=== PATIENT | male | born 2000 | race Caucasian/White ===

== ENCOUNTER 2020-01-11 13:02 | Emergency (ER) | payer OTHER, SELFPAY ==
[~2020-01-11] VITALS: Ht 188 cm; Wt 66.1 kg
[2020-01-11 13:47] LABS: BASO % 0.6 % (0.0-1.0); EOS # 0.1 10^3/uL (0.0-0.5); EOS % 2.1 % (0.0-3.0); HEMOGLOBIN 14.9 g/dl (13.5-17.5); LYMPH # 1.7 10^3/uL (1.5-5.0); LYMPH % 25.6 % (24.0-44.0); MEAN CORPUSCULAR HEMOGLOBIN 29.3 pg (27.0-33.0); MEAN CORPUSCULAR HGB CONC 32.4 g/dl (32.0-36.5); MEAN CORPUSCULAR VOLUME 90.6 fl (80.0-96.0); MONO # 0.6 10^3/uL (0.0-0.8); MONO % 9.4 % (0.0-5.0); NEUTROPHILS # 4.2 10^3/uL (1.5-8.5); PLATELET COUNT, AUTOMATED 185 10^3/uL (150-450); RED BLOOD COUNT 5.08 10^6/uL (4.30-6.10); WHITE BLOOD COUNT 6.8 10^3/uL (4.0-10.0)
[2020-01-11 14:36] VITALS: BP 109/55
--- NOTE | 2020-01-11 14:42 | REP ---
INDICATION: tender lump upper arm and axilla. COMPARISON: None. TECHNIQUE: Soft tissue ultrasound with color Doppler FINDINGS: In the right upper arm distally at the site of the palpable finding there is a hypoechoic zone measuring 1.4 x 0.8 x 1.3 cm. Centrally there is zone of color flow within and more in the periphery. Lesion is predominantly hypoechoic. There are a few internal echoes within this lesion. The right axilla palpable finding represents 2 separate lesions. These also have a hypoechoic areas with a peripheral hyperechoic rim and also some color flow into the center of the lesion and the margin of the lesions. One of these does not have an echogenic hilum and measures 1.9 x 1.7 x 1.4. The other does have an echogenic hilum with vessels in it and measuring 2.4 x 1.6 x 1.6 cm. No other findings in these areas. IMPRESSION: 1. Two complex nodules in the right axilla, the larger a clearly a reactive node with the echogenic hilum and blood flow into it and with a hypoechoic periphery. The other does not have the echogenic hilum but does show blood flow in a small central portion as well as at its periphery. I suspect reactive nodes for both of these. Phlegmonous changes may be present. I cannot define abscess in the axilla at this time. 2. Distal forearm lesion may be phlegmon or developing abscess. Color flow is seen in a portion of its central zone. Possibility that this also represents infected lymph node with phlegmonous change. <Electronically signed by Tirso Ramirez > 01/11/20 [id number]
[2020-01-11] MEDS ORDERED: ZITHTAB PO (14:59)
== END 2020-01-11 15:01 | disposition home or self-care (01) ==
LOC: M ED 13:02
DX: R59.1 Generalized enlarged lymph nodes (principal); F17.210 Nicotine dependence, cigarettes, uncomplicated

== ENCOUNTER 2020-04-04 14:15 | Emergency (ER) | payer SELFPAY ==
[~2020-04-04] VITALS: Ht 188 cm; Wt 64.9 kg
[2020-04-04 14:15] VITALS: BP 118/59
[~2020-04-04 14:15] MED LIST: ZITHTAB PO
--- OUTSIDE RECORDS SUMMARY | 2020-04-04 14:20 | CCD ---
Author Author [facility] Organization [facility] Address Unknown Phone Unavailable Care Team Providers Care Saw Grinder Name Role Phone JOSÉ MIGUEL SEBASTIANAGILL Unavailable Unavailable Re-disclosure Warning The records that you are about to access may contain information from federally-assisted alcohol or drug abuse programs. If such information is present, then the following federally mandated warning applies: This information has been disclosed to you from records protected by federal confidentiality rules (42 CFR part 2). The federal rules prohibit you from making any further disclosure of this information unless further disclosure is expressly permitted by the written consent of the person to whom it pertains or as otherwise permitted by 42 CFR part 2. A general authorization for the release of medical or other information is NOT sufficient for this purpose. The Federal rules restrict any use of the information to criminally investigate or prosecute any alcohol or drug abuse patient.The records that you are about to access may contain highly sensitive health information, the redisclosure of which is protected by Article 27-F of the [facility] Public Health law. If you continue you may have access to information: Regarding HIV / AIDS; Provided by facilities licensed or operated by the [facility] Office of Mental Health; or Provided by the [facility] Office for People With Developmental Disabilities. If such information is present, then the following [facility] mandated warning applies: This information has been disclosed to you from confidential records which are protected by state law. State law prohibits you from making any further disclosure of this information without the specific written consent of the person to whom it pertains, or as otherwise permitted by law. Any unauthorized further disclosure in violation of state law may result in a fine or fdc sentence or both. A general authorization for the release of medical or other information is NOT sufficient authorization for further disc losure. Encounters Encounter Providers Location Date Indications Data Source(s ) Outpatient Attender: ARMINDA [facility] 08/12/2019 07:31:57 PM E [facility] Outpatient Attender: [facility] 08/02/2019 12:08:39 AM E [facility] Insurance Providers Payer name Policy type / Coverage type Policy ID Covered alliance party ID Covered alliance party's relationship to groves Policy Groves Plan Information SELF PAY ONLY [id number] SP [id number] SELF PAY ONLY [id number] SP [id number] SP [id number] [facility]IL[facility] S UNAVAILA BLE [facility] P [id number] O [id number] [employer] [id number] SP [id number] COUNT INCLUDES THE [facility] MEDICAID MANAGED CARE [id number] SP [id number] [facility] [id number] Self [id number] MEDICAID [id number] OTHER1 NON.E S NON.E XXX XXX 000 000
--- OUTSIDE RECORDS SUMMARY | 2020-04-04 14:42 | CCD ---
Author Author [facility] Organization [facility] Address Unknown Phone Unavailable Care Team Providers Care Tool Salvage Worker Name Role Phone JOSÉ MIGUEL SEBASTIANAGILL Unavailable [...] is protected by Article 27-F of the [facility] Public Health law. If you continue you may have access to information: Regarding HIV / AIDS; Provided by facilities licensed or operated by the [facility] Office of Mental Health; or Provided by the [facility] Office for People With Developmental Disabilities. If such information is present, then the following [facility] mandated warning applies: This information has [...] law may result in a fine or detention sentence or both. A general authorization for the release of medical or other information is NOT sufficient authorization for further disc losure. Encounters Encounter Providers Location Date Indications Data Source(s ) Outpatient Att[facility]: [facility] 08/12/2019 07:31:57 PM E [facility] Outpatient Attender: [facility] 08/02/2019 12:08:39 AM E [facility] Insurance Providers Payer name Policy type / Coverage type Policy ID Covered constitution party ID Covered constitution party's relationship to groves Policy [place] Plan Information SELF PAY ONLY [id number] SP [id number] SELF PAY ONLY [id number] SP [id number] SP [id number] [facility] UNAVAILA BLE [facility] P [id number] O [id number] [facility] MEDICAID MANAGED CARE [id number] SP [id number] [facility] MEDICAID MANAGED CARE [id number] SP [id number] [facility] [id number] Self [id number] MEDICAID [id number] OTHER1 NON.E S NON.E XXX XXX 000 000
--- NOTE | 2020-04-04 15:06 | REP ---
INDICATION: fall, swelling, injury. COMPARISON: None. TECHNIQUE: Four views of the right hand. FINDINGS: Four views of the right hand demonstrate normal bones, joints, and soft tissues. No fracture or subluxation is seen. No opaque foreign body noted. IMPRESSION: Negative right hand series. <Electronically signed by Igor Hammond > 04/04/20 [id number]
== END 2020-04-04 15:16 | disposition home or self-care (01) ==
LOC: M ED 14:15
DX: S60.221A Contusion of right hand, initial encounter (principal); X58.XXXA Exposure to other specified factors, initial encounter; Y92.018 Other place in single-family (private) house as the place of occurrence of the external cause; G71.00 Muscular dystrophy, unspecified; F17.210 Nicotine dependence, cigarettes, uncomplicated; Z77.098 Contact with and (suspected) exposure to other hazardous, chiefly nonmedicinal, chemicals

== ENCOUNTER 2020-06-24 18:53 | Emergency (ER) | payer OTHER, SELFPAY ==
[~2020-06-24] VITALS: Ht 188 cm; Wt 66.3 kg
[2020-06-24] MEDS ORDERED: KETOROLAC 30 MG/ML 1ML VIAL IV ONE (19:40)
[2020-06-24] MEDS ORDERED: NS 1,000 ML IV ONE (19:40)
[2020-06-24] MEDS ORDERED: ONDANSETRON 4MG/2ML VIAL IV ONE (19:40)
[2020-06-24] MEDS ORDERED: ISOVUE-370 76% 100ML VIAL As Ordered ONE (20:17)
[2020-06-24 20:18] LABS: BASO % 0.4 % (0.0-1.0); EOS # 0.2 10^3/uL (0.0-0.5); EOS % 1.8 % (0.0-3.0); HEMATOCRIT 48.4 % (42.0-52.0); HEMOGLOBIN 16.4 g/dl (13.5-17.5); LYMPH # 2.2 10^3/uL (1.5-5.0); LYMPH % 26.6 % (24.0-44.0); MEAN CORPUSCULAR HEMOGLOBIN 29.8 pg (27.0-33.0); MEAN CORPUSCULAR HGB CONC 33.9 g/dl (32.0-36.5); MEAN CORPUSCULAR VOLUME 87.8 fl (80.0-96.0); MONO # 0.6 10^3/uL (0.0-0.8); NEUTROPHILS # 5.4 10^3/uL (1.5-8.5); PLATELET COUNT, AUTOMATED 276 10^3/uL (150-450); RED BLOOD COUNT 5.51 10^6/uL (4.30-6.10); WHITE BLOOD COUNT 8.4 10^3/uL (4.0-10.0)
[2020-06-24 20:44] LABS: ALBUMIN 4.7 GM/DL (3.2-5.2); ALT/SGPT 48 U/L (12-78); BILIRUBIN,DIRECT 0.2 MG/DL (0.0-0.2); BILIRUBIN,TOTAL 0.5 MG/DL (0.2-1.0); C REACTIVE PROTEIN QUANTITATIV < 0.30 MG/DL (0.00-0.30); TOTAL PROTEIN 7.8 GM/DL (6.4-8.2)
[2020-06-24 20:46] LABS: ERYTHROCYTE SEDIMENTATION RATE 2 mm/hr (0-15)
--- NOTE | 2020-06-24 21:21 | REPVR ---
PROCEDURE INFORMATION: Exam: CT Maxillofacial With Contrast Exam date and time: 06/24/2020 8:21 PM Age: 20 years old Clinical indication: Mass, lump, or swelling; Mouth; Additional info: Abscess tooth/swelling/pain/redness right mastoid TECHNIQUE: Imaging protocol: Computed tomography images of the face with intravenous contrast. Radiation optimization: All CT scans at this facility use at least one of these dose optimization techniques: automated exposure control; mA and/or kV adjustment per patient size (includes targeted exams where dose is matched to clinical indication); or iterative reconstruction. Contrast material: ISOVUE 370; Contrast volume: 75 ml; Contrast route: INTRAVENOUS (IV); COMPARISON: No relevant prior studies available. FINDINGS: Orbital cavity: Orbits are normal. Globes are unremarkable. Bones/joints: There is rightward deviation of the nasal septum. The ostiomeatal complexes are patent bilaterally. There is a small amount of fluid in both maxillary antra as well as mucoperiosteal thickening in the floor the right maxillary antrum and within several ethmoid air cells. Paranasal sinuses: See "Bones/joints" finding. Mastoid air cells: The middle ear cavities and mastoid air cells are clear. Soft tissues: Unremarkable. Dental: There appears to be a dental adriana in the right maxillary 1st molar series 203, image 23, series 205 images 27 -29. There is no associated periapical lucency however there is a cyst in the floor of the right maxillary antrum which may be associated. No drainable abscess is identified. There is also a dental adriana in the left 2nd maxillary molar. Series 202 image 26, series 203 images 28, 29. IMPRESSION: Although dental caries are seen in the maxilla both on the right and the left no associated drainable abscesses are identified. Electronically signed by: Simona Martin On 06/24/2020 21:20:32 PM
[2020-06-24] MEDS ORDERED: AUGMENTIN 875 MG TAB PO ONE (22:20)
[2020-06-24] MEDS ORDERED: AUGM875T28 PO (22:21)
[2020-06-24 22:35] VITALS: BP 130/70
== END 2020-06-24 22:37 | disposition home or self-care (01) ==
LOC: M ED 18:53
DX: K02.9 Dental caries, unspecified (principal); H66.91 Otitis media, unspecified, right ear; M27.40 Unspecified cyst of jaw; Z77.098 Contact with and (suspected) exposure to other hazardous, chiefly nonmedicinal, chemicals
CPT/HCPCS: 70487; 80047; 80076; 83605; 85025; 85652; 86140; 87040; 96361; 96374; 96375; 99283; J1885; J2405; Q9967

== ENCOUNTER 2020-07-27 18:45 | Emergency (ER) | payer OTHER ==
[~2020-07-27] VITALS: Ht 188 cm; Wt 63.4 kg
[~2020-07-27 18:45] MED LIST changes: +AUGM875T28 PO
[2020-07-27] MEDS ORDERED: AMOX875T (18:50)
[2020-07-27] MEDS ORDERED: TYLE650T38 PO (18:50)
[2020-07-27] MEDS ORDERED: IBUPROFEN 800 MG TAB PO ONE (21:45)
[2020-07-27] MEDS ORDERED: IBUP80TA PO (21:46)
[2020-07-27 21:56] VITALS: BP 118/65
== END 2020-07-27 21:57 | disposition home or self-care (01) ==
LOC: M ED 18:45
DX: K08.89 Other specified disorders of teeth and supporting structures (principal)

== ENCOUNTER 2020-10-27 16:14 | Emergency (ER) | payer OTHER ==
[~2020-10-27] VITALS: Ht 188 cm; Wt 65.9 kg
[2020-10-27 16:14] VITALS: BP 126/58
[~2020-10-27 16:14] MED LIST changes: +AMOX875T; +IBUP80TA PO; +TYLE650T38 PO
== END 2020-10-28 04:43 | disposition left against medical advice (07) ==
LOC: M ED 16:14
DX: Z53.29 Procedure and treatment not carried out because of patient's decision for other reasons (principal)

== ENCOUNTER 2020-11-05 14:51 | Emergency (ER) | payer OTHER ==
[~2020-11-05] VITALS: Ht 188 cm; Wt 61.7 kg
[2020-11-05] MEDS ORDERED: LIDOCAINE 2% MDV 20ML VIAL SC ONE (18:35)
[2020-11-05] MEDS ORDERED: AUGM875T28 PO (19:27)
[2020-11-05] MEDS ORDERED: KETO2CR TOP (19:27)
[2020-11-05] MEDS ORDERED: MUPI2OI TOP (19:27)
[2020-11-05 20:14] VITALS: BP 121/68
== END 2020-11-05 20:17 | disposition home or self-care (01) ==
LOC: M ED 14:51
DX: L72.0 Epidermal cyst (principal); B35.4 Tinea corporis; L73.9 Follicular disorder, unspecified; F17.210 Nicotine dependence, cigarettes, uncomplicated

== ENCOUNTER 2020-11-14 18:19 | Emergency (ER) | payer OTHER ==
[~2020-11-14] VITALS: Ht 182.9 cm; Wt 62.8 kg
[~2020-11-14 18:19] MED LIST changes: +KETO2CR TOP; +MUPI2OI TOP
[2020-11-14 21:51] LABS: BASO % 0.6 % (0.0-1.0); EOS # 0.1 10^3/uL (0.0-0.5); EOS % 1.7 % (0.0-3.0); HEMOGLOBIN 15.7 g/dl (13.5-17.5); LYMPH # 1.8 10^3/uL (1.5-5.0); LYMPH % 34.1 % (24.0-44.0); MEAN CORPUSCULAR HEMOGLOBIN 29.9 pg (27.0-33.0); MEAN CORPUSCULAR HGB CONC 34.1 g/dl (32.0-36.5); MEAN CORPUSCULAR VOLUME 87.6 fl (80.0-96.0); MONO # 0.3 10^3/uL (0.0-0.8); MONO % 5.4 % (2.0-8.0); NEUTROPHILS # 3.1 10^3/uL (1.5-8.5); PLATELET COUNT, AUTOMATED 222 10^3/uL (150-450); RED BLOOD COUNT 5.25 10^6/uL (4.30-6.10); WHITE BLOOD COUNT 5.4 10^3/uL (4.0-10.0)
[2020-11-14 22:22] LABS: ALT/SGPT 42 U/L (12-78); BILIRUBIN,DIRECT 0.1 MG/DL (0.0-0.2); BILIRUBIN,TOTAL 0.4 MG/DL (0.2-1.0); BLOOD UREA NITROGEN 17 MG/DL (7-18); CALCIUM LEVEL 9.2 MG/DL (8.5-10.1); CARBON DIOXIDE LEVEL 29 MEQ/L (21-32); CHLORIDE LEVEL 106 MEQ/L (98-107); CREATININE FOR GFR 0.78 MG/DL (0.70-1.30); GLOMERULAR FILTRATION RATE > 60.0 (>60); GLUCOSE, FASTING 104 MG/DL (70-100); LIPASE 125 U/L (73-393); POTASSIUM SERUM 3.8 MEQ/L (3.5-5.1); SODIUM LEVEL 141 MEQ/L (136-145); TOTAL PROTEIN 7.1 GM/DL (6.4-8.2)
[2020-11-14] MEDS ORDERED: HYDR-3363 PO (23:22)
[2020-11-14 23:30] VITALS: BP 118/58
== END 2020-11-14 23:40 | disposition home or self-care (01) ==
LOC: M ED 18:19
DX: Z04.89 Encounter for examination and observation for other specified reasons (principal); G71.00 Muscular dystrophy, unspecified; Z77.098 Contact with and (suspected) exposure to other hazardous, chiefly nonmedicinal, chemicals

== ENCOUNTER 2021-01-02 14:56 | Emergency (ER) | payer OTHER ==
[~2021-01-02] VITALS: Ht 185.4 cm; Wt 63.2 kg
[2021-01-02 14:56] VITALS: BP 132/64
[~2021-01-02 14:56] MED LIST changes: +HYDR-3363 PO
--- OUTSIDE RECORDS SUMMARY | 2021-01-02 21:01 | CCD | Continuity of Care Document ---
Author Author Riley ULRICH MD Organization Unknown Address [address], [address] [place] [address] Phone [phone] Care Team Providers Care Tile Helper Name Role Phone Gilberto Mercado MD AUTM [phone] Problems Active Problems Provider Date Left temporomandibular joint disorder Ar Ulrich MD On set: 11/10/2020 Social History Type Date Description Comments Sex Unknown ETOH Use Denies alcohol use Tobacco Use Start: Unknown Using Electronic Cig. Recreational Drug Use Denies Drug Use Allergies, Adverse Reactions, Alerts Description No Known Drug Allergies Medications Active Medications SIG Qnty Indications Ordering Provide r Date Amoxicillin/Clavulanate Potassium 875-125mg Tablets Unknown Immunizations Description No Information Available Vital Signs Date Vital Result Comment 11/10/2020 10:39am BP Systolic 130 mmHg BP Diastolic 90 mmHg Heart Rate 82 /min O2 % BldC Oximetry 98 % Height 72 inches 6'0" Weight 135.00 lb BMI (Body Mass Index) 18.3 kg/m2 [place] Body Weight 178 lb Weight 61.236 kg BSA (Body Surface Area) 1.80 m2 Results Description No Information Available Procedures Description No Information Available Medical Devices Description No Information Available Encounters Description No Information Available Assessments Date Code Description Provider 11/10/2020 M26.602 Left temporomandibular joint dis order, unspecified Ar Ulrich MD Plan of Treatment Future Appointment(s):* 12/01/2020 1:00 pm - Ar Ulrich MD at [facility] 11/10/2020 - Ar Ulrich MD* M26.602 Left temporomandibular joint disorder, unspecified* Comments:* We discussed conservative treatment for mild TMJ. This included soft diet anti-inflammatories and topical creams like Arnica. We discussed a night splint. We will also organize physiotherapy. We will follow up as needed. Functional Status Description No Information Available Mental Status Description No Information Available Referrals Refer to Dr Reason for Referral Status Appt Date Ar Ulrich M.D. ED REFERRAL - [facility] Scheduled 11/[address] [address] [phone]
--- OUTSIDE RECORDS SUMMARY | 2021-01-02 21:01 | CCD | Continuity of Care Document ---
Author Author [facility] Organization [facility] Address [address] [place] [address] Care Team Providers Care Battery Checker Name Role Phone NONE Unavailable Unavailable Insurance Providers Payer Name Policy Number Subscriber Name Relationship [employer] CARE [id number] ALBA BRANCH SE LF Advance Directives Directive Response Recorded Date/Time Existing Advanced Directive: N 12/08/20 12 :30pm WHO HAS POWER OF SPECIAL CERTIFICATE DICTATOR? N 12/08/20 12:3 0pm Chief Complaint and Reason for Visit Reason for Visit EARLOBE PAIN Problems No problem information available. Medications Current Home Medications Medication Dose Units Route Directions Days/Qty Instructions Star t Date Carbamid Peroxide Ear (Debrox Ear Drops) 15 ML DROP 4 DROPS OTIC - EAR(S) Daily 1 4 drops in each ears for 4-5 days 05/18/14 Past Home Medications Medication Directions Ordered Status Carbamid Peroxide Ear (Debrox Ear Drops) [address] griffith, 4 Drops Otic - Ear(S) Daily 05/04/14 Discontinued Flu Vacc Qs (36MOS+)/Pf (Fluarix Quad 2775-0729 Pf Syringe 36MO+) 60 Mcg/0.5 Ml SyringeSyringe, 0.5 Ml Intramusc Once Daily 05/18/14 Discontinued Hepatitis A Virus Vaccine/Pf (Havrix 720 Unit/0.5 Ml Syringe) 720 Unit/0.5 Ml Disp.syrin Disp.syrin,0.5 Ml Intramusc Once Daily 05/18/14 D iscontinued Human Papilomvirus Vac,Qval/Pf (Gardasil Vial) 0.5 Ml Vial Vial, 0.5 Ml Intramusc Once Daily 05/18/14 Discontinued Mening Vac A,C,Y,W-135 Dip/Pf (Menactra Vial) 4 Mcg/0.5 Ml Vial Vial, 0.5 Ml Intramusc Once Daily 05/18/14 Discontinued Social History Problem Response Recorded Date Alcohol use= NO 09/13/14 Hospital Discharge Instructions No hospital discharge instructions. Plan of Care Discharge Date 12/08/20 Disposition HOME/SELF CARE Prescriptions See Medications Section Functional Status No functional status results. Allergies, Adverse Reactions, Alerts Allergen Type Severity Reaction Status Last Updated No Known Drug Intolerances Allergy Unknown Active 01/15/17 Immunizations No Known History of Immunizations. Vital Signs No Known Vital Signs Results. Results No known relevant diagnostic tests, laboratory data and/or discharge summary. Procedures No Known History of Procedures. Encounters Encounter Location Arrival/Admit Date Discharge/Depart Date Attending Provider Departed Emergency [facility] 12/08/20 12:30pm 12/08/20 1:24p Kade Esteban Registered Referral [facility] 12/08/20 2:14am Ryne Gordillo M.D.
--- OUTSIDE RECORDS SUMMARY | 2021-01-02 21:01 | CCD | Continuity of Care Document ---
Author Author Riely ULRICH MD Organization Unknown Address [address] [place] [address] Phone [phone] Care Team Providers Care Gift Wrapper Name Role Phone Gilberto Mercado MD AUTM [phone] Problems Active Problems Provider Date Epidermoid cyst Ar Ulrich MD Onset: 11/10/2020 Left temporomandibular joint disorder Ar Ulrich MD [...] lb BMI (Body Mass Index) 18.3 kg/m2 [place] Body Weight 178 lb Weight 61.236 kg BSA (Body Surface Area) 1.80 m2 Results Description No Information Available Procedures Date Code Description Status 11/10/2020 06976 Office/Outpatient New Low MDM 30 -44 Minutes Completed Medical Devices Description No Information Available Encounters Type Date Location Provider Dx Diagnosis Office Visit 11/10/2020 10:30a [facility] Carmen Zamora M26.602 Left temporomandibular joint disorder, unspecified L72.3 Sebaceous cyst Assessments Date Code Description Provider 11/10/2020 M26.602 Left temporomandibular joint dis order, unspecified Ar Ulrich MD 11/10/2020 L72.3 Sebaceous cyst Ar Ulrich MD Plan of Treatment Future Appointment(s):* 12/01/2020 1:00 pm - Ar Ulrich MD at [facility] Functional Status Description No Information Available Mental Status Description No Information Available Referrals Refer to Reason for Referral Status Appt Date [facility] Rehab TMJ therapy Sent PT/OT/Rehab [address] [place] [address] [phone] Ar Ulrich M.D. ED REFERRAL - [facility] Closed 11/[address] [id number] [phone]
--- OUTSIDE RECORDS SUMMARY | 2021-01-02 21:01 | CCD ---
Author Author [facility] Organization [facility] Address Unknown Phone Unavailable Care Team Providers Care Farm Manager Name Role Phone AKHIL CASTLE MD Unavailable Unavailable AKHIL CASTLE MD Unavailable Unavailable AKIHL CASTLE MD Unavailable Unavailable AKHIL CASTLE MD Unavailable Unavailable AKHIL CASTLE MD Unavailable Unavailable AKHIL CASTLE MD Unavailable Unavailable AKHIL CASTLE MD Unavailable Unavailable AKHIL CASTLE MD Unavailable Unavailable AKHIL CASTLE MD Unavailable Unavailable AKHIL CASTLE MD Unavailable Unavailable AKHIL CASTLE MD Unavailable Unavailable AKHIL CASTLE MD Unavailable Unavailable AKHIL CASTLE MD Unavailable Unavailable AKHIL CASTLE MD Unavailable Unavailable AKHIL CASTLE MD Unavailable Unavailable Sienkiewycz, L Britany SUGAR REFINERY SUPERVISOR Unavailable Unavailable Sienkiewycz, L Britany SUGAR REFINERY SUPERVISOR Unavailable Unavailable Sienkiewycz, L Britany SUGAR REFINERY SUPERVISOR Unavailable Unavailable Sienkiewycz, L Britany SUGAR REFINERY SUPERVISOR Unavailable Unavailable Sienkiewycz, L Britany SUGAR REFINERY SUPERVISOR Unavailable Unavailable Sienkiewycz, L Britany SUGAR REFINERY SUPERVISOR Unavailable Unavailable Sienkiewycz, L Britany SUGAR REFINERY SUPERVISOR Unavailable Unavailable Kade Estevez D.O. Unavailable Unavailable Aye DUFF Unavailable Unavailable BROUGHAL, C ROSETTA PA Unavailable Unavailable BROUGHAL, C ROSETTA PA Unavailable Unavailable BROUGHAL, C ROSETTA PA Unavailable Unavailable BROUGHAL, C ROSETTA PA Unavailable Unavailable BROUGHAL, C ROSETTA PA Unavailable Unavailable Serg, C Ar PH.D., M.D. Unavailable Unavailable Serg, C Ar PH.D., M.D. Unavailable Unavailable Serg, C Ar PH.D., M.D. Unavailable Unavailable Serg, C Ar PH.D., M.D. Unavailable Unavailable Serg, C Ar PH.D., M.D. Unavailable Unavailable Serg, C Ar PH.D., M.D. Unavailable Unavailable Serg, C Ar PH.D., M.D. Unavailable Unavailable Serg, C Ar PH.D., M.D. Unavailable Unavailable Serg, C Ar PH.D., M.D. Unavailable Unavailable Serg, C Ar PH.D., M.D. Unavailable Unavailable Serg, C rA PH.D., M.D. Unavailable Unavailable Serg, C Ar PH.D., M.D. Unavailable Unavailable Serg, C Ar PH.D., M.D. Unavailable Unavailable Serg, C Ar PH.D., M.D. Unavailable Unavailable Serg, C Ar PH.D., M.D. Unavailable Unavailable Serg, C Ar PH.D., M.D. Unavailable Unavailable Serg, C Ar PH.D., M.D. Unavailable Unavailable Serg, C Ar PH.D., M.D. Unavailable Unavailable Serg, C Ar PH.D., M.D. Unavailable Unavailable Serg, C Ar PH.D., M.D. Unavailable Unavailable Serg, C Ar PH.D., M.D. Unavailable Unavailable Serg, C Ar PH.D., M.D. Unavailable Unavailable Serg, C Ar PH.D., M.D. Unavailable Unavailable Serg, C Ar PH.D., M.D. Unavailable Unavailable Serg, C Ar PH.D., M.D. Unavailable Unavailable Serg, C Ar PH.D., M.D. Unavailable Unavailable Serg, C Ar PH.D., M.D. Unavailable Unavailable Serg, C Ar PH.D., M.D. Unavailable Unavailable Serg, C Ar PH.D., M.D. Unavailable Unavailable Serg, C Ar PH.D., M.D. Unavailable Unavailable Serg, C Ar PH.D., M.D. Unavailable Unavailable Serg, C Ar PH.D., M.D. Unavailable Unavailable Serg, C Ar PH.D., M.D. Unavailable Unavailable Serg, C Ar PH.D., M.D. Unavailable Unavailable Serg, C Ar PH.D., M.D. Unavailable Unavailable Serg, C Ar PH.D., M.D. Unavailable Unavailable Serg, C Ar PH.D., M.D. Unavailable Unavailable Serg, C Ar PH.D., M.D. Unavailable Unavailable Serg, C Ar PH.D., M.D. Unavailable Unavailable Serg, C Ar PH.D., M.D. Unavailable Unavailable Serg, C Ar PH.D., M.D. Unavailable Unavailable Serg, C Ar PH.D., M.D. Unavailable Unavailable Serg, C Ar PH.D., M.D. Unavailable Unavailable Serg, C Ar PH.D., M.D. Unavailable Unavailable Serg, C Ar PH.D., M.D. Unavailable Unavailable Serg, C Ar PH.D., M.D. Unavailable Unavailable Serg, C Ar PH.D., M.D. Unavailable Unavailable Serg, C Ar PH.D., M.D. Unavailable Unavailable Serg, C Ar PH.D., M.D. Unavailable Unavailable Serg, C Ar PH.D., M.D. Unavailable Unavailable Serg, C Ar PH.D., M.D. Unavailable Unavailable Serg, C Ar PH.D., M.D. Unavailable Unavailable Serg, C Ar PH.D., M.D. Unavailable Unavailable Serg, C Ar PH.D., M.D. Unavailable Unavailable Serg, C Ar PH.D., M.D. Unavailable Unavailable Serg, C Ar PH.D., M.D. Unavailable Unavailable Serg, C Ar PH.D., M.D. Unavailable Unavailable Serg, C Ar PH.D., M.D. Unavailable Unavailable Serg, C Ar PH.D., M.D. Unavailable Unavailable Serg, C Ar PH.D., M.D. Unavailable Unavailable Serg, C Ar PH.D., M.D. Unavailable Unavailable Serg, C Ar PH.D., M.D. Unavailable Unavailable Serg, C Ar PH.D., M.D. Unavailable Unavailable Serg, C Ar PH.D., M.D. Unavailable Unavailable Serg, Aye Joyner PH.D., M.D. Unavailable Unavailable Serg, Aye Joyner PH.D., M.D. Unavailable Unavailable Serg, Aye Joyner PH.D., M.D. Unavailable Unavailable Serg, Aye Joyner PH.D., M.D. Unavailable Unavailable Serg, Aye Joyner PH.D., M.D. Unavailable Unavailable Serg, Aye Joyner PH.D., M.D. Unavailable Unavailable Serg, Aye Joyner PH.D., M.D. Unavailable Unavailable Serg, Aye Joyner PH.D., M.D. Unavailable Unavailable Serg, Aye Joyner PH.D., M.D. Unavailable Unavailable Serg, Aye Joyner PH.D., M.D. Unavailable Unavailable Serg, Aye Joyner PH.D., M.D. Unavailable Unavailable Serg, Aye Joyner PH.D., M.D. Unavailable Unavailable Serg, Aye Joyner PH.D., M.D. Unavailable Unavailable Serg, Aye Joyner PH.D., M.D. Unavailable Unavailable Serg, Aye Joyner PH.D., M.D. Unavailable Unavailable Serg, Aye Joyner PH.D., M.D. Unavailable Unavailable Serg, Aye Joyner PH.D., M.D. Unavailable Unavailable Serg, Aye Joyner PH.D., M.D. Unavailable Unavailable Re-disclosure Warning The records that [...] is protected by Article 27-F of the [facility] Public Health law. If you continue you may have access to information: Regarding HIV / AIDS; Provided by facilities licensed or operated by the [facility] Office of Mental Health; or Provided by the [facility] Office for People With Developmental Disabilities. If such information is present, then the following [facility] mandated warning applies: This information has [...] law may result in a fine or senior living sentence or both. A general authorization for the release of medical or other information is NOT sufficient authorization for further disc losure. Encounters Encounter Providers Location Date Indications Data Source(s ) Outpatient Attender: Ar Ulrich PH.D., Augustin Kay/Alma Delia bah/Lia 12/21/2020 11:15:00 AM EDT [facility] ([facility] ) Emergency Attender: Yinka Estevez D.O. SURG-ER 12/08/2020 12:30: 00 PM EDT [facility] Patient discharged. Outpatient Attender: AKHIL CASTLE MD SURG-NPLAB 12/08/2020 02:14:00 AM EDT [facility]. P Attender: AKHIL CASTLE MD SURG-NPLAB 12/08/2020 12:00:00 AM EDT [facility]. Outpatient Attender: Ar Ulrich PH.D., Augustin bah/Lia 11/10/2020 10:30:00 AM EDT [facility] Out[facility] Attender: Britany Castellanos NP SURG-NPLAB 09/28/2020 02:38:00 AM EDT [facility]. P Attender: Britany Castellanos NP SURG-NPLAB 09/28/2020 12:0 0:00 AM EDT [facility]. Outpatient Attender: ROSETTA JOE CPSCAORT-LABCOVWAR 0 09/27/2020 12:36:00 PM EDT - 09/27/2020 12:37:[address] [facility] Z11.59 Patient discharged. Immunizations Vaccine Date Status Description Data Source(s) COVID-19 VACCINE Pfizer 12/23/2020 12:00:00 AM EDT completed [facility] Vaccine Series Complete: NOThis Data was Submitted to [facility] Via [employer]. Medications Medication Brand Name Start Date Product Form Dose Route Admi nistrative Instructions Pharmacy Instructions Status Indications Reaction Description Data Source(s) 25 mg 11/15/2020 12:00:00 AM EDT tablet 15 TAKE ONE TABLET BY MOUTH THREE TIMES A DAY FOR ANXIETY TAKE ONE TABLET BY MOUTH THREE TIMES A DAY FOR ANXIETY SOLD: 11/15/2020 [facility] 2 % 11/06/2020 12:00:00 AM EDT ointment 22 APPLY TO AFFECTED AREA(S) ON CHIN / FINGER THREE TIMES A DAY APPLY TO AFFECTED AREA(S) ON CHIN / FING ER THREE TIMES A DAY SOLD: 11/06/2020 [facility] 2 % 11/06/2020 12:00:00 AM EDT cream 30 APPLY TO AFFECTED AREA(S) ON BACK OF NECK TWO TIMES A DAY APPLY TO AFFECTED AREA(S) ON BACK OF NECK TWO TIMES A DAY SOLD: 11/06/2020 [facility] Amoxicillin 875 MG / Clavulanate 125 MG Oral Tablet 87 5-125 mg AMOXICILLIN/POTASSIUM CLAV 11/06/2020 12:00:00 AM EDT tablet 20 TAKE ONE TABLET BY MOUTH TWICE A DAY FOR 10 DAYS TAKE ONE TABLET BY MOUTH TWICE A DAY FOR 10 DAYS SOLD: 11/06/2020 [facility] 0.12 % 08/03/2020 12:00:00 AM EDT mouthwash 473 RINSE MOUTH WITH 15ML (1 CAPFUL) FOR 30 SECONDS EVERY MORNING AND IN THE EVENING AFTER TOOTHBRUSHING. SPIT AFTER RINSING, DO NOT SWALLOW RINSE MOUTH WITH 15ML (1 CAPFUL) FOR 30 SECONDS EVERY MORNING AND IN THE EVENING AFTER TOOTHBRUSHING. SPIT AFTER RINSING, DO NOT SWALLOW SOLD: 08/03/2020 [facility] Acetaminophen 325 MG / Hydrocodone Bitartrate 5 MG Ora l Tablet 5-325 mg HYDROCODONE/ACETAMINOPHEN 08/03/2020 12:00:00 AM EDT tablet 8 TAKE ONE TABLET BY MOUTH EVERY 6 HOURS NEEDED FOR PAIN MAXIMUM DAILY DOSE = FOUR TABLETS TAKE ONE TABLET BY MOUTH EVERY 6 HOURS NEEDED FOR PAIN MAXIMUM DAILY DOSE = FOUR TABLETS SOLD: 08/03/2020 [facility] 500 mg 08/03/2020 12:00:00 AM EDT capsule 21 TAKE ONE CAPSULE BY MOUTH EVERY 8 HOURS UNTIL GONE TAKE ONE CAPSULE BY MOUTH EVERY 8 HOURS UNTIL GONE TOBI [facility] 800 mg 07/28/2020 12:00:00 AM EDT tablet 30 TAKE ONE TABLET BY MOUTH EVERY 6 HOURS NEEDED FOR PAIN TAKE ONE TABLET BY MOUTH EVERY 6 HOURS A S NEEDED FOR PAIN SOLD: 08/03/2020 [facility] 875 mg 07/22/2020 12:00:00 AM EDT tablet 14 TAKE ONE TABLET BY MOUTH EVERY 12 HOURS TAKE ONE TABLET BY MOUTH EVERY 12 HOURS SOLD: 07/22/2020 [facility] Amoxicillin 875 MG / Clavulanate 125 MG Oral Tablet 87 5-125 mg AMOXICILLIN/POTASSIUM CLAV 06/25/2020 12:00:00 AM EDT tablet 20 TAKE ONE TABLET BY MOUTH TWICE A DAY TAKE ONE TABLET BY MOUTH TWICE A DAY SOLD: 06/25/2020 [facility] Insurance Providers Payer name Policy type / Coverage type Policy ID Covered green party ID Covered green party's relationship to groves Policy [place] Plan Information XXX XXX [id number] I [id number] Self [id number] [facility] MEDICAID [id number] SP [id number] SP [id number] [facility] [id number] Other [id number] SELF PAY ONLY [id number] SP [id number] SELF PAY ONLY [id number] SP [id number] IXOMARA [id number] SP [id number] [facility]IL[facility] S UNAVAILA BLE [facility] P [id number] O [id number] [facility] MEDICAID MANAGED CARE [id number] SP [id number] MEDICAID [id number] NON.E S NON.E XIOMARA [id number] SP [id number] [facility] MEDICAID MANAGED CARE [id number] SP [id number] [id number] SP [id number] Problems, Conditions, and Diagnoses Code Display Name Description Problem Type Effective Dates Data Source(s) Z11.59 Encounter for screening for other viral diseases ENCOUNTER FOR SCREENING FOR OTHER VIRAL DISEASES Diagnosis 09/27/2020 12:36:00 PM EDT [facility] M26.602 Left temporomandibular joint disorder Le ft temporomandibular joint disorder Problem 11/10/2020 12:00:00 AM EDT [facility] ([facility]) L72.3 Epidermoid cyst Epidermoid cyst Problem 11/10/2020 12:0 0:00 AM EDT [facility] ([facility]) Surgeries/Procedures Procedure Description Date Indications Data Source(s) OFFICE OUTPATIENT VISIT 15 MINUTES 12/21/2020 12:00:00 AM EDT [facility] ([facility]) OFFICE OUTPATIENT NEW 30 MINUTES 11/10/2020 12:00:00 A M EDT [facility] ([facility]) Results ID Date Data Source [id number] 12/08/2020 10:20:00 AM EDT [facility] Name Value Range Interpretation Code Description Data Kaci rce(s) Supporting Document(s) SARS-CoV-2 (COVID-19) RNA [Presence] in Respiratory specimen by CARL with probe detection Negative [facility] This lab was ordered by [facility] and reported by . ID Date Data Source [id number] 09/27/2020 12:30:00 PM EDT [facility] Name Value Range Interpretation Code Description Data Kaci rce(s) Supporting Document(s) Respiratory specimen severe acute respir atory syndrome coronavirus 2 (SARS-CoV-2) RNA Negative (qualifier value) [facility] This lab was ordered by [facility] and reported by [facility]. ID Date Data Source [id number] 09/28/2020 07:35:00 AM EDT [facility] COVID-19 Specimen Source NASOPHARYNGEAL Testing was performed using the Aptima SARS-CoV-2 Assay (eventuosity System) Methodology: Nucleic Acid Amplification Engine Manager RT-PCR Mediated Amplification (TMA) and Dual Kinetic Assay (DKA) Negative results do not preclude SARS-CoV-2 infection and should not be used as the sole basis for patient management decisions. Negative results must be combined with clinical observations, patient history, and epidemiological information. This test has been authorized by FDA under an (Emergency Use Authorization) EUA for use by authorized laboratories for individuals who are suspected of COVID-19 by their healthcare provider. This test is only authorized for the duration of the declaration that circumstances exist justifying the authorization of emergency use of in vitro diagnostic tests for detection and/or diagnosis of SARS-CoV-2. Fact sheets for this EUA assay can be found at the following links EUA Fact Sheet for Providers: https://www.fda.gov/media/139059/download EUA Fact Sheet for Patients: https://www.fda.gov/media/008402/download THIS IS A STATE REPORTABLE COMMUNICABLE DISEASE. Test Performed By: [facility] [address] [place] [address] Director: Sarita Silva MD Name Value Range Interpretation Code Description Data Kaci rce(s) Supporting Document(s) Procedure Social History No Information Vital Signs ID Date Data Source UNK Name Value Range Interpretation Code Description Data Source(s) Systolic blood pressure 120 mm[Hg] 120 mm[Hg] M [facility] ([facility]) Diastolic blood pressure 70 mm[Hg] 70 mm[Hg] [facility] ([facility]) Heart rate 59 /min 59 /min [facility] ([facility]) Oxygen saturation in Arterial blood by Pulse oximetry 98 % 98 % [facility] ([facility]) Body height 72 [in_i] 72 [in_i] [facility] ([facility]) 6'0" Body weight 142.00 [lb_av] 142.00 [facility]lb_av] [facility] Body mass index (BMI) [Ratio] 19.3 kg/m2 19.3 k g/m2 [facility]) [place] body weight 178 [lb_av] 178 [lb_av] [facility] Body weight 64.411 kg 64.411 kg [facility] ([facility]) Body surface area Derived from formula 1.84 m2 1.84 m2 [facility] ([facility]) Body height 72 [in_i] 72 [in_i] [facility] ([facility]) 6'0" Body weight 135.00 [lb_av] 135.00 [lb_av] [facility] Body mass index (BMI) [Ratio] 18.3 kg/m2 18.3 k g/m2 [facility] ([facility] ) [place] body weight 178 [lb_av] 178 [lb_av] [facility] Systolic blood pressure 130 mm[Hg] 130 mm[Hg] M [facility] ([facility]) Diastolic blood pressure 90 mm[Hg] 90 mm[Hg] [facility] ([facility]) Heart rate 82 /min 82 /min [facility] ([facility]) Body weight 61.236 kg 61.236 kg [facility] ([facility]) Body surface area Derived from formula 1.80 m2 1.80 m2 [facility] ([facility]) Oxygen saturation in Arterial blood by Pulse oximetry 98 % 98 % [facility] ([facility])
--- OUTSIDE RECORDS SUMMARY | 2021-01-02 21:01 | CCD | Continuity of Care Document ---
Author Author Riley ULRICH MD Organization Unknown Address [address], [address] [place] [address] Phone [phone] Care Team Providers Care Power Tool Repair Technician Name Role Phone Gilberto Mercado MD AUTM [phone] Problems Active Problems Provider Date Epidermoid cyst Ar Ulrich MD Onset: 11/10/2020 Left temporomandibular joint disorder Ar Ulrich MD On set: 11/10/2020 Social History Type Date Description Comments Sex Unknown ETOH Use Denies alcohol use Tobacco Use Start: Unknown Using Electronic Cig. Recreational Drug Use Denies Drug Use Allergies and adverse reactions Description No Known Drug Allergies Medications Description No Active Medications Immunizations Description No Information Available Vital Signs Date Vital Result Comment 12/21/2020 11:15am BP Systolic 120 mmHg BP Diastolic 70 mmHg Heart Rate 59 /min O2 % BldC Oximetry 98 % Height 72 inches 6'0" Weight 142.00 lb BMI (Body Mass Index) 19.3 kg/m2 [place] Body Weight 178 lb Weight 64.411 kg BSA (Body Surface Area) 1.84 m2 11/10/2020 10:39am BP Systolic 130 mmHg BP Diastolic 90 mmHg Heart Rate 82 /min O2 % BldC Oximetry 98 % Height 72 inches 6'0" Weight 135.00 lb BMI (Body Mass Index) 18.3 kg/m2 [place] Body Weight 178 lb Weight 61.236 kg BSA (Body Surface Area) 1.80 m2 Results Description No Information Available Procedures Date Code Description Status 12/21/2020 50472 Office/Outpatient Established Lo w MDM 20-29 Min Completed 11/10/2020 82891 Office/Outpatient New Low MDM 30 -44 Minutes Completed Medical Devices Description No Information Available Encounters Type Date Location Provider Dx Diagnosis Office Visit 12/21/2020 11:15a [facility] Carmen Zamora L72.3 Sebaceous cyst Office Visit 11/10/2020 10:30a [facility] Carmen Zamora M26.602 Left temporomandibular joint disorder, unspecified L72.3 Sebaceous cyst Assessments Date Code Description Provider 12/21/2020 L72.3 Sebaceous cyst Ar Ulrich MD 11/10/2020 M26.602 Left temporomandibular joint dis order, unspecified Ar Ulrich MD 11/10/2020 L72.3 Sebaceous cyst Ar Ulrich MD Plan of Treatment Future Appointment(s):* 01/20/2021 3:00 pm - Ar Ulrich MD at [facility] Functional Status Description No Information Available Mental Status Description No Information Available Referrals Refer to Reason for Referral Status Appt Date [facility] Rehab TMJ therapy Scheduled PT/OT/Rehab [address] [place] [address] [phone] Ar Ulrich M.D. ED REFERRAL - CYST Closed 11/[address] [address] [phone]
--- OUTSIDE RECORDS SUMMARY | 2021-01-02 21:01 | CCD | Continuity of Care Document ---
Author Author Riley ULRICH MD Organization Unknown Address [address] [place] [address] Phone [phone] Care Team Providers Care Digital Sales Planner Name Role Phone Gilberto Mercado MD AUTM [phone] Problems Active Problems Provider Date Epidermoid cyst [...] lb BMI (Body Mass Index) 19.3 kg/m2 [place] [facility] Weight 178 lb Weight 64.411 kg BSA (Body Surface Area) 1.84 m2 11/10/2020 10:39am BP Systolic 130 mmHg BP Diastolic 90 mmHg Heart Rate 82 /min O2 % BldC Oximetry 98 % Height 72 inches 6'0" Weight 135.00 lb BMI (Body Mass Index) 18.3 kg/m2 [place] [facility] Weight 178 lb Weight 61.236 kg BSA (Body Surface Area) 1.80 m2 Results Description No Information Available Procedures Date Code Description Status 11/10/2020 99119 Office/Outpatient New Low MDM 30 -44 Minutes Completed Medical Devices Description No Information Available Encounters Type Date Location Provider Dx Diagnosis Office Visit 11/10/2020 10:30a [facility] Carmen Zamora M26.602 Left temporomandibular joint disorder, unspecified L72.3 Sebaceous cyst Assessments Date Code Description Provider 12/21/2020 L72.3 Sebaceous cyst Ar Ulrich MD 11/10/2020 M26.602 Left temporomandibular joint dis order, unspecified Ar Ulrich MD 11/10/2020 L72.3 Sebaceous cyst Ar Ulrich MD Plan of Treatment Future Appointment(s):* 01/20/2021 3:00 pm - Ar Ulrich MD at [facility] 12/21/2020 - Ar Ulrich MD* L72.3 Sebaceous cyst* Comments:* We discussed the options for medical management or removal today. Riley has just completing a course of antibiotics and the lesion is settled down. We discussed if it swells up again then it will be easier to excise it in its entirety. He would like to proceed with removal. He is aware that this may reoccur. We will schedule this in the near future. Functional Status Description No Information Available Mental Status Description No Information Available Referrals Refer to Reason for Referral Status Appt Date [facility] Rehab TMJ therapy Scheduled PT/OT/Rehab [address] [place] [address] [phone] Ar Ulrich M.D. ED REFERRAL - CYST Closed 11/[address] [address] [phone]
== END 2021-01-02 20:50 | disposition left against medical advice (07) ==
LOC: M ED 14:56
DX: Z53.29 Procedure and treatment not carried out because of patient's decision for other reasons (principal)

== ENCOUNTER → 2021-01-14 | Outpatient (REF) | payer OTHER | LOC: M LAB REF 17:23 | PROVIDERS: ATTEND Dermatology | DX: L72.0 Epidermal cyst (principal) ==

== ENCOUNTER → 2021-01-20 | Outpatient (REF) | payer OTHER | LOC: M LAB REF 17:58 | PROVIDERS: ATTEND Otolaryngology | DX: L72.3 Sebaceous cyst (principal) ==

== ENCOUNTER 2021-11-19 13:36 | Emergency (ER) | payer OTHER ==
[~2021-11-19] VITALS: Ht 188 cm; Wt 67.1 kg
[~2021-11-19 13:36] MED LIST changes: +CIME200T4 PO; +FAMO20TA PO; +PANT20TA6 PO
[2021-11-19 14:45] LABS: RSV AMPLIFICATION NEGATIVE (NEGATIVE)
[2021-11-19 16:45] VITALS: BP 115/72
== END 2021-11-19 16:46 | disposition home or self-care (01) ==
LOC: M ED 13:36
DX: J06.9 Acute upper respiratory infection, unspecified (principal); G71.00 Muscular dystrophy, unspecified; F17.290 Nicotine dependence, other tobacco product, uncomplicated

== ENCOUNTER 2021-11-26 21:36 | Emergency (ER) | payer OTHER ==
[~2021-11-26] VITALS: Ht 185.4 cm; Wt 66.5 kg
[2021-11-27] MEDS ORDERED: LIDOCAINE VISCOUS 2% SOLN 15ML UDC SSP ONE (01:00)
[2021-11-27 01:19] VITALS: BP 132/85
== END 2021-11-27 01:20 | disposition home or self-care (01) ==
LOC: M ED 21:36
DX: K14.6 Glossodynia (principal)

== ENCOUNTER → 2024-03-21 | Outpatient (REF) | payer OTHER ==
[~2024-03-21] MED LIST changes: -CIME200T4 PO; +CIME200T40 PO
== END ==
LOC: M LAB REF 16:31
PROVIDERS: ATTEND Otolaryngology
DX: J03.90 Acute tonsillitis, unspecified (principal)